=== PATIENT | male | born 1965 | race Caucasian/White ===

== ENCOUNTER 2020-10-28 21:56 | Observation (INO) | payer BC ==
[~2020-10-28] VITALS: Ht 195.6 cm; Wt 145.3 kg
[2020-10-28] MEDS ORDERED: LOSA50TA88 (22:46)
[2020-10-28] MEDS ORDERED: ALLOPOW4 (22:46)
[2020-10-28] MEDS ORDERED: FERR32TA (22:46)
[2020-10-28] MEDS ORDERED: OMEP-221 (22:46)
[2020-10-28] MEDS ORDERED: FURO20TA2 (22:46)
[2020-10-28] MEDS ORDERED: METF500T13 (22:46)
[2020-10-28] MEDS ORDERED: METF-839 (22:46)
[2020-10-28] MEDS ORDERED: ATEN50TA2 (22:46)
[2020-10-28 23:12] LABS: BASO % 0.3 % (0.0-1.0); EOS # 0.1 10^3/uL (0.0-0.5); EOS % 0.9 % (0.0-3.0); HEMATOCRIT 40.8 % (42.0-52.0); HEMOGLOBIN 13.5 g/dl (13.5-17.5); LYMPH % 17.5 % (24.0-44.0); MEAN CORPUSCULAR HEMOGLOBIN 28.1 pg (27.0-33.0); MEAN CORPUSCULAR HGB CONC 33.1 g/dl (32.0-36.5); MEAN CORPUSCULAR VOLUME 84.8 fl (80.0-96.0); MONO # 1.2 10^3/uL (0.0-0.8); MONO % 10.8 % (0.0-5.0); NEUTROPHILS # 7.8 10^3/uL (1.5-8.5); NEUTROPHILS % 68.3 % (36.0-66.0); PLATELET COUNT, AUTOMATED 184 10^3/uL (150-450); RED BLOOD COUNT 4.81 10^6/uL (4.30-6.10); WHITE BLOOD COUNT 11.4 10^3/uL (4.0-10.0)
[2020-10-28 23:22] LABS: INR 1.11; PROTHROMBIN TIME 14.5 SECONDS (12.5-14.3)
[2020-10-28 23:23] LABS: PARTIAL THROMBOPLASTIN TIME 29.3 SECONDS (24.2-38.5)
[2020-10-28 23:25] LABS: D-DIMER QUANT 553.69 ng/ml (<500)
[2020-10-28 23:30] LABS: BLOOD UREA NITROGEN 20 MG/DL (7-18); CREATININE FOR GFR 1.15 MG/DL (0.70-1.30); GLUCOSE, FASTING 116 MG/DL (70-100)
[2020-10-28 23:31] LABS: ALBUMIN 2.9 GM/DL (3.2-5.2); ALT/SGPT 33 U/L (12-78); BILIRUBIN,TOTAL 0.7 MG/DL (0.2-1.0); C REACTIVE PROTEIN QUANTITATIV 7.19 MG/DL (0.00-0.30); CALCIUM LEVEL 8.6 MG/DL (8.5-10.1); CARBON DIOXIDE LEVEL 31 MEQ/L (21-32); CHLORIDE LEVEL 98 MEQ/L (98-107); CK-MB VALUE MASS < 1.0 NG/ML (<3.6); CPK CREATINE PHOSPHOKINASE 192 U/L (39-308); FERRITIN 723 NG/ML (26-388); GLOMERULAR FILTRATION RATE > 60.0 (>56); LDH LACTATE DEHYDROGENASE 555 U/L (87-241); MAGNESIUM LEVEL 2.1 MG/DL (1.8-2.4); MB/CK RELATIVE INDEX 0.52 (< OR =4); POTASSIUM SERUM 4.7 MEQ/L (3.5-5.1); SODIUM LEVEL 138 MEQ/L (136-145); TOTAL PROTEIN 6.4 GM/DL (6.4-8.2); TROPONIN I < 0.02 NG/ML (< 0.10)
[2020-10-28] MEDS ORDERED: ISOVUE-370 76% 100ML VIAL As Ordered ONE (23:46)
--- NOTE | 2020-10-28 23:46 | REPVR ---
PROCEDURE INFORMATION: Exam: XR Chest, 1 View Exam date and time: 10/28/2020 11:14 PM Age: 55 years old Clinical indication: Shortness of breath; Additional info: Coronavirus workup TECHNIQUE: Imaging protocol: XR of the chest Views: 1 view. COMPARISON: No relevant prior studies available. FINDINGS: Lungs: Bilateral peripheral lung opacities, could be fibrosis or infection. Pleural space: Unremarkable. No pleural effusion. No pneumothorax. Heart/Mediastinum: Unremarkable. No cardiomegaly. Bones/joints: Unremarkable. IMPRESSION: Bilateral peripheral lung opacities, could be fibrosis or infection. Electronically signed by: Ty Lott On 10/28/2020 23:46:30 PM
[2020-10-29] VITALS (7 sets, daily range): BP systolic 131–155; BP diastolic 65–85; O2SAT 93–96
[2020-10-29] MEDS ORDERED: AZITHROMYCIN INJ 500 MG, VIAL MATE ADAPTER 1 EACH in D5W 250 ML IV ONE (00:15)
[2020-10-29] MEDS ORDERED: cefTRIAXone SOD 1 GM in D5W MINI-BAG PLUS 50 ML IV ONE (00:15)
--- NOTE | 2020-10-29 00:34 | REPVR ---
PROCEDURE INFORMATION: Exam: CT Angiography Chest With Contrast Exam date and time: 10/28/2020 11:42 PM Age: 55 years old Clinical indication: Chest pain; Type not specified; Additional info: Chest pain RO pe - covid + TECHNIQUE: Imaging protocol: Computed tomographic angiography of the chest with intravenous contrast. 3D rendering (Not supervised by radiologist): MIP and/or 3D reconstructed images were created by the technologist. Radiation optimization: All CT scans at this facility use at least one of these dose optimization techniques: automated exposure control; mA and/or kV adjustment per patient size (includes targeted exams where dose is matched to clinical indication); or iterative reconstruction. Contrast material: ISO; Contrast volume: 100 ml; Contrast route: INTRAVENOUS (IV); COMPARISON: CR PORTABLE CHEST X-RAY 10/28/2020 11:07 PM FINDINGS: Limitations: Examination is limited by motion artifact. Pulmonary arteries: Normal. No pulmonary emboli. Aorta: Unremarkable. No aortic aneurysm. No aortic dissection. Bronchial tree: Visualized bronchial tree is unremarkable. Lungs: Mild patchy ground-glass opacities with peripheral predominance. Pleural space: Unremarkable. No pneumothorax. No pleural effusion. Heart: Unremarkable. No cardiomegaly. No pericardial effusion. Lymph nodes: Multiple borderline subcarinal nodes. Pancreas: Cystic lesion in the tail of the pancreas measuring 1.7 x 1.7 cm. (Series 401, image 177). Lesion is not fully characterized on this study. 1 no pancreatic ductal dilatation. It is unclear if the lesion communicates with the pancreatic duct. Bones/joints: Mild degenerative spine. No acute fracture. Nonspecific sclerotic lesion in the body of the sternum measuring 2.5 cm in length. Soft tissues: Unremarkable. IMPRESSION: 1. Negative for pulmonary emboli. 2. Mild patchy ground-glass opacities with peripheral predominance. Commonly reported imaging features of COVID-19 pneumonia are present. Other processes such as influenza pneumonia and organizing pneumonia, as can be seen with drug toxicity and connective tissue disease, can cause a similar imaging pattern. (See Reference: Grupo) 3. Cystic lesion in the tail of the pancreas. Lesion is not fully characterized on this study. Reimaging every 6 months for 2 years, then every 1 year for 2 years, then every 2 years for 6 years is recommended. Alternatively, endoscopic ultrasound with fine needle aspiration is recommended. (Reference: Nate, 2017) REFERENCES: 1. Megibow AJ, et al. Management of Incidental Pancreatic Cysts: A White Paper of the ACR Incidental Findings Committee. J Am Ranjit Radiol. 2017;14(7):911-923. 2. Grupo S, et al., Radiological Society of [place] Expert Consensus Statement on Reporting Chest CT Findings Related to COVID-19. Endorsed by the Society of Thoracic Radiology, the [place] [employer], and RSNA, Dec 2019. Electronically signed by: Ehsan Brownlee On 10/29/2020 00:33:39 AM
[2020-10-29] MEDS ORDERED: ZYLO300T6 PO (00:48)
[2020-10-29] MEDS ORDERED: METF500T13 PO (00:48)
[2020-10-29] MEDS ORDERED: LOSA50TA88 PO (00:48)
[2020-10-29] MEDS ORDERED: FERR32TA PO (00:48)
[2020-10-29] MEDS ORDERED: ATEN50TA2 PO (00:48)
[2020-10-29] MEDS ORDERED: FURO20TA2 PO (00:48)
[2020-10-29] MEDS ORDERED: OMEP-221 PO (00:48)
[2020-10-29] MEDS ORDERED: ATOR40TA75 PO (00:48)
[2020-10-29 01:41] LABS: CK-MB VALUE MASS < 1.0 NG/ML (<3.6); CPK CREATINE PHOSPHOKINASE 80 U/L (39-308); MB/CK RELATIVE INDEX 1.25 (< OR =4); TROPONIN I < 0.02 NG/ML (< 0.10)
[2020-10-29] MEDS ORDERED: ACETAMINOPHEN TAB 650MG DOSE (2X325MG) PO PRN (02:00)
[2020-10-29] MEDS ORDERED: MAALOX 30 ML SUSP *UDC PO PRN (02:00)
[2020-10-29] MEDS ORDERED: MOM 30ML SUSPENSION UDC PO PRN (02:00)
[2020-10-29 02:27] LABS: NT-PRO BNP 187 PG/ML (<125)
--- NOTE | 2020-10-29 03:13 | HPEPDOC ---
[facility] Medical History & Physical Date of Admission Oct 29, 2020 Date of Service: Oct 29, 2020 Attending Physician: ARABELLA REDDY MD History and Physical TIME OF SERVICE:420am CHIEF COMPLAINT: dyspnea HISTORY OF PRESENT ILLNESS: This 55 yr old M presented w c/o 12 day in duration dyspnea, cough, fevers, chills, headache, sore throat, loss of smell and taste; 6 days ago he was diagnosed with COVID 19. Yesterday evening he came to the ER bc he was having trouble sleeping and was concerned that he is not getting better. He works at [employer] and thinks he got COVID while at work. REVIEW OF SYSTEMS: 12-point review of systems negative except as listed in HPI PAST MEDICAL/ SURGICAL HISTORY: HTN DM Obesity DLP Cholecystectomy SOCIAL HISTORY: He doesnt smoke FAMILY HISTORY: Prostate cancer ALLERGIES: Please see below. HOME MEDICATIONS: Please see below. PHYSICAL EXAMINATION: Vital Signs Date Time Temp Pulse Resp B/P (MAP) Pulse Ox O2 Delivery O2 Flow Rate FiO2 10/28/20 21:57 97.6 75 16 185/92 (123) 96 Room Air GENERAL APPEARANCE: well nourished /well developed / NAD HEENT: EOMI / MMM&P / has mask pulled down to cover his neck rather than covering his lower face CARDIOVASCULAR: RRR/NMRG/ radial pulses intact LUNGS: coughing frequently / not using accessory muscles to breath/ lungs are CTAB on RA ABDOMEN: obese MUSCULOSKELETAL: NCAT/ KELLY x 4 INTEGUMENT: slightly flushed NEUROLOGICAL: CN 2-12 intact / speech not dysarthric PSYCHIATRIC: A&O x 3 / able to understand and follow all commands LABORATORY DATA: Anion Gap 9, Glomerular Filtration Rate > 60.0, Calcium Level 8.6, Magnesium Level 2.1, Ferritin 723H, Total Bilirubin 0.7, Aspartate Amino Transf (AST/SGOT) 33, Alanine Aminotransferase (ALT/SGPT) 33, Alkaline Phosphatase 67, Lactate Dehydrogenase 555H, Total Creatine Kinase 192, Creatine Kinase MB < 1.0, Creatine Kinase MB Relative Index 0.52, Troponin I < 0.02, C-Reactive Protein, Quantitative 7.19H, Total Protein 6.4, Albumin 2.9L, Albumin/Globulin Ratio 0.8 10/28/20 22:39: Lactic Acid Level 1.6 10/28/20 23:04: Prothrombin Time 14.5H, Prothromb Time International Ratio 1.11, Activated Partial Thromboplast Time 29.3, Fibrinogen 608H, D-Dimer, Quantitative 553.69H 10/28/20 23:05: Immature Granulocyte % (Auto) 2.2, Neutrophils (%) (Auto) 68.3H, Lymphocytes (%) (Auto) 17.5L, Monocytes (%) (Auto) 10.8H, Eosinophils (%) (Auto) 0.9, Basophils (%) (Auto) 0.3, Neutrophils # (Auto) 7.8, Lymphocytes # (Auto) 2.0, Monocytes # (Auto) 1.2H, Eosinophils # (Auto) 0.1, Basophils # (Auto) 0.0, Nucleated Red Blood Cells % (auto) 0.2H 10/29/20 00:48: Total Creatine Kinase 80, Creatine Kinase MB < 1.0, Creatine Kinase MB Relative Index 1.25, Troponin I < 0.02, CF-Nik-T-Type Natriuretic Peptide 187H IMAGING: Chest xray IMPRESSION: Bilateral peripheral lung opacities, could be fibrosis or infection. CTA chest IMPRESSION: 1. Negative for pulmonary emboli. 2. Mild patchy ground- glass opacities with peripheral predominance. Commonly reported imaging features of COVID-19 pneumonia are present. Other processes such as influenza pneumonia and organizing pneumonia, as can be seen with drug toxicity and connective tissue disease, can cause a similar imaging pattern. (See Reference: Grupo) 3. Cystic lesion in the tail of the pancreas. Lesion is not fully characterized on this study. Reimaging every 6 months for 2 years, then every 1 year for 2 years, then every 2 years for 6 years is recommended. Alternatively, endoscopic ultr asound with fine needle aspiration is recommended. (Reference: Nate, 2017) MICROBIOLOGY: 10/28/20 Blood Culture, Received Pending 10/28/20 Blood Culture, Received Pending ASSESSMENT: is a 55 yr old M w a hx of HTN DLP DM and obesity who presented w c/o persistent URI symptoms 6 days after being diagnosed w COVID 19 and will be admitted for management of COVID 19 PNA. PLAN: 1 COVID-19 qCSI score = 0 points = low risk Plan: admit to medical floor / continuous pulse ox / supplemental O2 up to 3L with target O2 sats between 92-95% / contact & air borne precautions / f/u repeat plts (if low indicates bad prognosis), CRP (if high indicates bad prognosis), INR, BMP, fibrinogen, INR, D-dimer, PT, PTT (if patient has DIC indicates bad prognosis), ferritin, LDH, procalcitonin (if elevated will help rule out bacterial PNA), troponins (elevated will need an Echo to r/o cardiomyopathy) / since he has PNA will start PO Doxycline (there are high rates of resistance to azithromycin in this community) /he is not a candidate for Remdisivir or dexamethasone / f/u ABG to calculate PORT/PSI Score if his score is in the class I or II category the day time team may consider early dc to complete out pt abx for PNA 2. Pancreatic tail lesion Plan: he will need out pt GI eval for EUS for biopsy 3 NIDDM2 Plan: diabetic diet / f/u accuchecks / hypoglycemia protocol / sliding scale insulin / hold oral anti-glycemic / f/u A1C (target A1C is < 6.5% / atorvastatin & losartan for secondary prevention 4. HTN Plan: Atenolol & Losartan 5.Gout Plan: Allopurinol 6. GERD Plan: Omeprazole 7. Obesity - complicates care - since the patients BMI >35 with co-existing DM he is a candidate for bariatric surgery Plan: the patient can f/u w his or her PCP for sleep apnea screening, stationary boiler fireman consult, to discuss staring Saxenda, which is indicated in patients with a BMI >27 with co-existing DM, HTN or dyslipidemia to help with weight control as an adjunct to exercise & referral to a Bariatric Surgeon / recommend cardiovascular exercise for 40 min 4-5 days a week DVT Px w Lovenox only D-dimer is about 500 Dispo: likely home after less than 2 midnights stay (obs admission) Home Medications Scheduled Allopurinol (Zyloprim) 300 Mg Tablet, 300 MG PO DAILY Atenolol (Atenolol) 50 Mg Tablet, 50 MG PO BID Atorvastatin Calcium (Atorvastatin Calcium) 40 Mg Tablet, 40 MG PO QHS Ferrous Gluconate (Ferrous Gluconate) 324 Mg Tablet, 324 MG PO DAILY Furosemide (Furosemide) 20 Mg Tablet, 20 MG PO DAILY Losartan Potassium (Losartan Potassium) 50 Mg Tablet, 50 MG PO DAILY Metformin HCl (Metformin HCl) 500 Mg Tablet, 500 MG PO DAILY Omeprazole (Omeprazole) 40 Mg Capsule.dr, 40 MG PO DAILY Allergies Coded Allergies: No Known Allergies (Unverified , 10/28/20) A-FIB/CHADSVASC A-FIB History Current/History of A-Fib/PAF?: No Current PO Anticoag Therapy: No ARABELLA REDDY MD Oct 29, 2020 03:13
[2020-10-29] MEDS ORDERED: GLUCAGON INJ 1MG VIAL SC PRN (03:15)
[2020-10-29] MEDS ORDERED: DEXTROSE 50% 50 ML SYRINGE IV PRN (03:15)
[2020-10-29] MEDS ORDERED: GLUCOSE 4GM CHEW TABLET PO PRN (03:15)
[2020-10-29 05:49] LABS: HEMOGLOBIN A1c 6.7 %
[2020-10-29] MEDS: HumaLOG INSULIN (NovoLOG) PER UNIT SC SCH ×2 (07:30→12:00)
[2020-10-29 07:51] LABS: ABG BASE EXCESS 2.2 (-2.0-2.0); ABG HCO3 22.7 MEQ/L (22.0-26.0); ABG O2 SATURATION 99.1 % (95.0-99.0); ABG PARTIAL PRESSURE CO2 24.5 mmHg (35.0-45.0); ABG PARTIAL PRESSURE O2 187.9 mmHg (75.0-100.0); ABG STANDARD HCO3 26.4 MEQ/L (22.0-26.0); ABG TOTAL CO2 23.5 MEQ/L (22.0-29.0); ABG pH (ARTERIAL) 7.585 UNITS (7.350-7.450)
[2020-10-29] MEDS ORDERED: LOSARTAN 50MG TABLET PO SCH (09:00)
[2020-10-29] MEDS ORDERED: allopurinoL 300 MG TAB PO SCH (09:00)
[2020-10-29] MEDS ORDERED: DOXYCYCLINE HYCLATE 100MG TABLET PO SCH (09:00)
[2020-10-29] MEDS ORDERED: atenoloL 50 MG TAB PO SCH (09:00)
[2020-10-29] MEDS ORDERED: FERROUS GLUCONATE 324 MG TAB PO SCH (09:00)
[2020-10-29] MEDS ORDERED: ENOXAPARIN 40MG/0.4ML SYRINGE (J1650 PER 10MG) SC SCH (09:00)
[2020-10-29] MEDS ORDERED: OMEPRAZOLE 20 MG CAP PO SCH (09:00)
[2020-10-29] MEDS ORDERED: FUROSEMIDE 20 MG TAB PO SCH (09:00)
[2020-10-29 10:09] LABS: BASO # 0.1 10^3/uL (0.0-0.2); BASO % 0.7 % (0.0-1.0); EOS # 0.1 10^3/uL (0.0-0.5); EOS % 1.8 % (0.0-3.0); HEMATOCRIT 42.1 % (42.0-52.0); HEMOGLOBIN 13.8 g/dl (13.5-17.5); LYMPH # 1.6 10^3/uL (1.5-5.0); LYMPH % 21.1 % (24.0-44.0); MEAN CORPUSCULAR HEMOGLOBIN 27.5 pg (27.0-33.0); MEAN CORPUSCULAR HGB CONC 32.8 g/dl (32.0-36.5); MONO # 1.1 10^3/uL (0.0-0.8); MONO % 13.9 % (0.0-5.0); NEUTROPHILS # 4.6 10^3/uL (1.5-8.5); NEUTROPHILS % 60.3 % (36.0-66.0); PLATELET COUNT, AUTOMATED 186 10^3/uL (150-450); RED BLOOD COUNT 5.01 10^6/uL (4.30-6.10); WHITE BLOOD COUNT 7.6 10^3/uL (4.0-10.0)
[2020-10-29 10:34] LABS: BLOOD UREA NITROGEN 18 MG/DL (7-18); CALCIUM LEVEL 8.5 MG/DL (8.5-10.1); CARBON DIOXIDE LEVEL 30 MEQ/L (21-32); CHLORIDE LEVEL 100 MEQ/L (98-107); CREATININE FOR GFR 0.88 MG/DL (0.70-1.30); GLOMERULAR FILTRATION RATE > 60.0 (>56); GLUCOSE, FASTING 109 MG/DL (70-100); POTASSIUM SERUM 3.4 MEQ/L (3.5-5.1); SODIUM LEVEL 137 MEQ/L (136-145)
[2020-10-29] MEDS ORDERED: ZINC50TA17 PO (11:11)
[2020-10-29] MEDS ORDERED: VITA250T4 PO (11:11)
--- NOTE | 2020-10-29 12:39 | DS.PDOC ---
Discharge Summary General Date of Admission Oct 28, 2020 at 21:57 Date of Discharge 10/29/2020 Attending Physician: JULIO ALBA MD Discharge Summary PROCEDURES PERFORMED DURING STAY: None. ADMITTING/DISCHARGE DIAGNOSES: COMPLICATIONS/CHIEF COMPLAINT: Covid+. HISTORY OF PRESENT ILLNESS: This 55 yr old M presented w c/o 12 day in duration dyspnea, cough, fevers, chills, headache, sore throat, loss of smell and taste; 6 days ago he was diagnosed with COVID 19. Yesterday evening he came to the ER bc he was having trouble sleeping and was concerned that he is not getting bertha r. He works at [employer] and thinks he got COVID while at work. HOSPITAL COURSE: Patient was on room air overnight without difficulty. His procalcitonin was 0.08 with a normal WBC count, was afebrile overnight and stated he felt comfortable with going home. He was discharged home with scripts for vitamin C and zinc and instructions from Dr. Alba and myself to continue with supportive care as well as to follow up with his PCP for the pancreatic lesion found incidentally on CT scan. DISCHARGE MEDICATIONS: Please see below. ALLERGIES: Please see below. PHYSICAL EXAMINATION ON DISCHARGE: VITAL SIGNS: Please see below. GENERAL: Well-appearing male male in no acute distress sitting comfortably in bed HEENT: normocephalic, atraumatic. EOMI. Sclera nonicteric. Mucous membrane is moist. NECK: Trachea midline, no JVD. CARDIOVASCULAR EXAMINATION: RRR. Normal S1 and S2, no murmurs, gallops, rubs. RESPIRATORY EXAMINATION: Clear to auscultation bilaterally no wheezes, crackles, rhonchi. Speaking in complete sentences. No use of accessory muscles of respiration. ABDOMINAL EXAMINATION: Obese. Soft, nontender, nondistended. Bowel sounds positive. EXTREMITIES: No swelling or edema. SKIN: No rashes or lesions. NEUROLOGICAL EXAMINATION: No focal neurologic deficits. PSYCHIATRIC EXAMINATION: Normal mood with flat affect. LABORATORY DATA: Please see below. IMAGIN10/28/2020 chest x-ray: IMPRESSION: Bilateral peripheral lung opacities, could be fibrosis or infection. 10/28/2020 CTA chest: IMPRESSION: 1. Negative for pulmonary emboli. 2. Mild patchy ground-glass opacities with peripheral predominance. Commonly reported imaging features of COVID-19 pneumonia are present. Other processes such as influenza pneumonia and organizing pneumonia, as can be seen with drug toxicity and connective tissue disease, can cause a similar imaging pattern. (See Reference: Grupo) 3. Cystic lesion in the tail of the pancreas. Lesion is not fully characterized on this study. Reimaging every 6 months for 2 years, then every 1 year for 2 years, then every 2 years for 6 years is recommended. Alternatively, endoscopic ultrasound with fine needle aspiration is recommended. (Reference: Nate, 2017) PROGNOSIS: Good ACTIVITY: As tolerated. DIET: As tolerated DISCHARGE PLAN: Discharge home DISCHARGE INSTRUCTIONS: 1. Please follow up with PCP in the next 2 weeks. 2. Please follow-up on pancreatic lesion as described above in imaging with PCP. DISCHARGE CONDITION: [Stable]. TIME SPENT ON DISCHARGE: 15 minutes. Vital Signs/I&Os Vital Signs Date Time Temp Pulse Resp B/P (MAP) Pulse Ox O2 Delivery O2 Flow Rate FiO2 10/29/20 10:01 59 155/78 (103) 95 Room Air 10/29/20 08:00 97.0 20 I&O- Last 24 Hours up to 6 AM 10/29/20 06:00 Intake Total 420 ml Output Total 350 ml Balance 70 ml Laboratory Data Labs 24H Laboratory Tests 2 10/28/20 22:38: Anion Gap 9, Glomerular Filtration Rate > 60.0, Calcium Level 8.6, Magnesium Level 2.1, Ferritin 723H, Total Bilirubin 0.7, Aspartate Amino Transf (AST/SGOT) 33, Alanine Aminotransferase (ALT/SGPT) 33, Alkaline Phosphatase 67, Lactate Dehydrogenase 555H, Total Creatine Kinase 192, Creatine Kinase MB < 1.0, Creatine Kinase MB Relative Index 0.52, Troponin I < 0.02, C-Reactive Protein, Quantitative 7.19H, Total Protein 6.4, Albumin 2.9L, Albumin/Globulin Ratio 0.8 10/28/20 22:39: Lactic Acid Level 1.6 10/28/20 23:04: Prothrombin Time 14.5H, Prothromb Time International Ratio 1.11, Activated Partial Thromboplast Time 29.3, Fibrinogen 608H, D-Dimer, Quantitative 553.69H 10/28/20 23:05: Immature Granulocyte % (Auto) 2.2, Neutrophils (%) (Auto) 68.3H, Lymphocytes (%) (Auto) 17.5L, Monocytes (%) (Auto) 10.8H, Eosinophils (%) (Auto) 0.9, Basophils (%) (Auto) 0.3, Neutrophils # (Auto) 7.8, Lymphocytes # (Auto) 2.0, Monocytes # (Auto) 1.2H, Eosinophils # (Auto) 0.1, Basophils # (Auto) 0.0, Nucleated Red Blood Cells % (auto) 0.2H, Estimated Mean Plasma Glucose 146H, Hemoglobin A1c 6.7 10/29/20 00:48: Total Creatine Kinase 80, Creatine Kinase MB < 1.0, Creatine Kinase MB Relative Index 1.25, Troponin I < 0.02, OK-Lwt-S-Type Natriuretic Peptide 187H 10/29/20 07:23: Blood Gas Bicarbonate Standard 26.4H, Arterial Blood pH 7.585H, Arterial Blood Partial Pressure CO2 24.5L, Arterial Blood Partial Pressure O2 187.9H, Arterial Blood Total CO2 23.5, Arterial Blood HCO3 22.7, Arterial Blood Base Excess 2.2H, Arterial Blood Oxygen Saturation 99.1H 10/29/20 09:14: Immature Granulocyte % (Auto) 2.2, Neutrophils (%) (Auto) 60.3, Lymphocytes (%) (Auto) 21.1L, Monocytes (%) (Auto) 13.9H, Eosinophils (%) (Auto) 1.8, Basophils (%) (Auto) 0.7, Neutrophils # (Auto) 4.6, Lymphocytes # (Auto) 1.6, Monocytes # (Auto) 1.1H, Eosinophils # (Auto) 0.1, Basophils # (Auto) 0.1, Nucleated Red Blood Cells % (auto) 0.0, Anion Gap 7L, Glomerular Filtration Rate > 60.0, Calcium Level 8.5 10/29/20 12:33: Bedside Glucose (Misc Panel) 112H CBC/BMP Laboratory Tests 10/28/20 22:38 10/28/20 23:05 10/29/20 09:14 FSBS Laboratory Tests Test 10/29/20 12:33 Range/Units Bedside Glucose (Misc Panel) 112 70-105 MG/DL Microbiology Microbiology 10/28/20 Blood Culture, Received Pending 10/28/20 Blood Culture, Received Pending Discharge Medications Scheduled Allopurinol (Zyloprim) 300 Mg Tablet, 300 MG PO DAILY, (Reported) Ascorbic Acid (Vitamin C) 250 Mg Tablet, 250 MG PO DAILY Atenolol (Atenolol) 50 Mg Tablet, 50 MG PO BID, (Reported) Atorvastatin Calcium (Atorvastatin Calcium) 40 Mg Tablet, 40 MG PO QHS, (Reported) Ferrous Gluconate (Ferrous Gluconate) 324 Mg Tablet, 324 MG PO DAILY, (Reported) Furosemide (Furosemide) 20 Mg Tablet, 20 MG PO DAILY, (Reported) Losartan Potassium (Losartan Potassium) 50 Mg Tablet, 50 MG PO DAILY, (Reported) Metformin HCl (Metformin HCl) 500 Mg Tablet, 500 MG PO DAILY, (Reported) Omeprazole (Omeprazole) 40 Mg Capsule.dr, 40 MG PO DAILY, (Reported) Zinc Gluconate (Zinc) 50 Mg Tablet, 50 MG PO BID Allergies Coded Allergies: No Known Allergies (Unverified , 10/28/20) GME ATTESTATION GME ATTESTATION My faculty preceptor for this patient encounter was physically present during the encounter and was fully available. All aspects of the patient interview, examination, medical decision making process, and medical care plan development were reviewed and approved by the faculty preceptor. The faculty preceptor is aware and concurs with the plan as stated in the body of this note and will attest to such by his/her cosignature. ATTENDING NOTE I, Julio Alba MD, have independently examined this patient and performed my own physical exam, as well as reviewed the documentation and edited where necessary. I have discussed in detail with the resident / student the findings and plan of treatment as documented by the resident / student and edited their note. I agree with their findings and treatment plan and have edited their documentation. DEVIKA SANTILLAN DO Oct 29, 2020 12:39 JULIO ALBA MD Nov 01, 2020 12:50
[2020-10-29] MEDS ORDERED: ATORVASTATIN 20 MG TAB PO SCH (21:00)
[2020-10-29] MEDS ORDERED: HumaLOG INSULIN (NovoLOG) PER UNIT SC SCH (21:00)
--- NOTE | 2020-10-30 14:33 | ECGEPIP ---
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
--- NOTE | 2020-10-30 14:34 | ECGEPIP ---
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
== END 2020-10-29 13:38 | disposition home or self-care (01) ==
LOC: M ED 21:56 → M ED INP 21:57 → M ICU 10-29 04:08
PROVIDERS: ADMIT Internal Medicine; ATTEND Internal Medicine
DX: U07.1 COVID-19 (principal); R91.8 Other nonspecific abnormal finding of lung field; R05 Cough; R50.9 Fever, unspecified; I10 Essential (primary) hypertension; E11.9 Type 2 diabetes mellitus without complications; E66.9 Obesity, unspecified; E78.49 Other hyperlipidemia; M10.9 Gout, unspecified; K21.9 Gastro-esophageal reflux disease without esophagitis; K86.9 Disease of pancreas, unspecified; Z79.84 Long term (current) use of oral hypoglycemic drugs; Z79.899 Other long term (current) drug therapy
CPT/HCPCS: 36415; 36600; 71045; 71275; 80048; 80053; 82550; 82553; 82728; 82803; 83036; 83605; 83615; 83735; 83880; 84145; 84484; 85025; 85379; 85384; 85610; 85730; 86140; 87040; 93005; 96365; 96367; 96372; 99285; J0456; J0696; J1650; Q9967

== ENCOUNTER → 2021-01-28 | Outpatient (CLI) | payer OTHER ==
[~2021-01-28] MED LIST: ALLOPOW4; ATEN50TA2; ATEN50TA2 PO; ATOR40TA75 PO; FERR32TA; FERR32TA PO; FURO20TA2; FURO20TA2 PO; LOSA50TA88; LOSA50TA88 PO; METF-839; METF500T13; METF500T13 PO; OMEP-221; OMEP-221 PO; VITA250T4 PO; ZINC50TA17 PO; ZYLO300T6 PO
[2021-01-28 13:34] LABS: BASO # 0.1 10^3/uL (0.0-0.2); EOS # 0.4 10^3/uL (0.0-0.5); EOS % 4.1 % (0.0-3.0); HEMATOCRIT 43.2 % (42.0-52.0); HEMOGLOBIN 14.3 g/dl (13.5-17.5); LYMPH # 2.3 10^3/uL (1.5-5.0); LYMPH % 23.4 % (24.0-44.0); MEAN CORPUSCULAR HEMOGLOBIN 28.7 pg (27.0-33.0); MEAN CORPUSCULAR HGB CONC 33.1 g/dl (32.0-36.5); MEAN CORPUSCULAR VOLUME 86.6 fl (80.0-96.0); MONO % 10.4 % (2.0-8.0); NEUTROPHILS # 5.8 10^3/uL (1.5-8.5); NEUTROPHILS % 60.4 % (36.0-66.0); PLATELET COUNT, AUTOMATED 180 10^3/uL (150-450); RED BLOOD COUNT 4.99 10^6/uL (4.30-6.10); WHITE BLOOD COUNT 9.7 10^3/uL (4.0-10.0)
[2021-01-28 14:09] LABS: ALBUMIN 3.5 GM/DL (3.2-5.2); ALT/SGPT 70 U/L (12-78); BILIRUBIN,TOTAL 0.5 MG/DL (0.2-1.0); BLOOD UREA NITROGEN 17 MG/DL (7-18); C REACTIVE PROTEIN QUANTITATIV 1.17 MG/DL (0.00-0.30); CALCIUM LEVEL 9.2 MG/DL (8.5-10.1); CARBON DIOXIDE LEVEL 27 MEQ/L (21-32); CHLORIDE LEVEL 104 MEQ/L (98-107); CREATININE FOR GFR 0.98 MG/DL (0.70-1.30); GLOMERULAR FILTRATION RATE > 60.0 (>56); GLUCOSE, FASTING 158 MG/DL (70-100); SODIUM LEVEL 139 MEQ/L (136-145); TOTAL PROTEIN 6.6 GM/DL (6.4-8.2)
== END ==
LOC: M LAB 12:46
PROVIDERS: ATTEND Internal Medicine Gastroenterology
DX: R19.09 Other intra-abdominal and pelvic swelling, mass and lump (principal)

== ENCOUNTER → 2021-03-14 | Outpatient (CLI) | payer OTHER ==
--- NOTE | 2021-03-14 09:39 | REP ---
INDICATION: OTHER INTRA ABD SWELLING, MASS, LUMP. COMPARISON: CT angiogram chest 10/28/2020. TECHNIQUE: Multiple sequences obtained in the coronal and axial planes. FINDINGS: The liver is enlarged. The length of the liver is at least 20 cm. There are findings consistent with diffuse fatty infiltration of the liver. The entire liver is not imaged, as this study is primarily performed to evaluate the previously identified cyst in the tail the pancreas. The visualized portions of the spleen appear unremarkable. The adrenal glands are normal. The size of the cyst in the tail of the pancreas is unchanged, 2 cm in maximum diameter. No other pancreatic lesion is seen. There is no pancreatic duct dilatation. There is no biliary dilatation. There are no abnormalities of the right kidney. The left kidney demonstrates 2 cysts in the mid aspect, the larger measures 1.8 cm in maximum diameter. There is no adenopathy or free fluid in the visualized abdomen. IMPRESSION: Stable cyst in the tail the pancreas, 2 cm in maximum diameter. Recommend follow-up MRI of the pancreas with and without contrast in 6 months. Hepatomegaly with diffuse fatty infiltration of the liver. <Electronically signed by Lyndon Johansen > 03/14/21 [id number]
== END ==
LOC: M RAD 06:38
PROVIDERS: ATTEND Internal Medicine Gastroenterology
DX: R19.09 Other intra-abdominal and pelvic swelling, mass and lump (principal); R16.0 Hepatomegaly, not elsewhere classified; K86.2 Cyst of pancreas; N28.1 Cyst of kidney, acquired; K76.0 Fatty (change of) liver, not elsewhere classified

== ENCOUNTER → 2021-06-11 | Outpatient (REF) ==
--- NOTE | 2021-06-11 11:26 | REP ---
INDICATION: ARTHRITIS COMPARISON: 04/14/2011. TECHNIQUE: Five views right knee. FINDINGS: There is no acute fracture or dislocation. There is mild to medial joint space narrowing with subchondral sclerosis and spurring. There is mild spurring of the medial and lateral patellar facets. 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 IMPRESSION: Degenerative changes as discussed in detail above. 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 <Electronically signed by Lyndon Johansen > 06/11/21 [id number]
== END ==
LOC: M PLAIMG 09:42
PROVIDERS: ATTEND Internal Medicine
DX: M92.511 Juvenile osteochondrosis of proximal tibia, right leg (principal)

== ENCOUNTER → 2021-11-19 | Outpatient (REF) ==
[~2021-11-19] MED LIST changes: +LOSA50TA28; +LOSA50TA28 PO; -LOSA50TA88; -LOSA50TA88 PO; -OMEP-221; -OMEP-221 PO; +OMEP40CA5; +OMEP40CA5 PO
== END ==
LOC: M PLAIMG 13:53
PROVIDERS: ATTEND Internal Medicine
DX: M54.50 Low back pain, unspecified (principal)

== ENCOUNTER → 2023-08-16 | Outpatient (CLI) | payer BC | LOC: M CARPUL 13:31 | PROVIDERS: ATTEND Physician Assistant Medical | DX: R06.09 Other forms of dyspnea (principal) ==